=== PATIENT | female | born 1945 | race Caucasian/White ===

== ENCOUNTER 2016-12-18 20:52 | Emergency (ER) | payer OTHER ==
[2016-12-18 20:58] VITALS: BP 188/72; BMI 30.1
--- NOTE | 2016-12-18 21:28 | RAD ---
EXAM: Right foot x-ray INDICATION: Pain COMPARISION: None TECHNIQUE: AP, lateral, and oblique, three views FINDINGS: There is a transverse fracture extending through the proximal meta diaphyseal region of the 3rd meta tarsal. There is an obliquely oriented fracture extending through the base of the 1st metatarsal. No fracture is identified in the 2nd metatarsal however given the other findings, an occult injury may be present. The joint spaces are preserved. No dislocation. No foreign body. IMPRESSION: Fractures are identified at the bases of the 1st and 3rd metatarsals. The joints appear normally ali gned and the joint spaces are preserved. Reported By:
--- NOTE | 2016-12-18 21:59 | DR.GENAD ---
HPI - PCP Primary Care Physician: claudia - Complaint/Symptoms Chief Complaint Doctors Comments: I agree with history as stated. Chief Complaint:: pt states" i slide down in the hahn at home and hurt my right foot i can't put pressure on it with severe pain" - Source History Provided: Patient - Mode of Arrival Mode of Arrival: Wheelchair - Timing Onset of Chief Complaint: 12/18/16 PMH - PMH Past Medical History: Yes Past Medical History: GERD, Hypertension, Hypothyroidism Past Surgical History: Yes Surgical History: Cholecystectomy, Other - Family History History of Family Medical Conditions: Yes Family Medical History: Cancer, Hypertension - Social History Does any household member use tobacco: No Alcohol Use: None Lives With: Family Lives Where: Home - infectious screening In the last 2 months have you had wt loss of >10#?: NO Have you had fever, night sweats or hemotysis?: No Have you traveled outside the country in the last 6 months?: No Isolation: Standard ROS - Review of Systems Eyes: No Symptoms Reported ENTM: No Symptoms Reported Respiratoy: No Symptoms Reported Cardiovascular: No Symptoms Reported Gastrointestinal/Abdominal: No Symptoms Reported Genitourinary: No Symptoms Reported Neurological: No Symptoms Reported Musculoskeletal: Foot (right foot pain) Integumentary: No Symptoms Reported Hematologic/Lymphatic: No Symptoms Reported Endocrine: No Symptoms Reported Psychiatric: No Symptoms Reported All Other Systems: Reviewed and Negative PE - Vital Signs Vitals: Temperature 98 F Pulse Rate 80 Respiratory Rate 16 Blood Pressure [Left Arm] 147/71 Blood Pressure [Right Arm] 143/71 Blood Pressure 188/72 O2 Sat by Pulse Oximetry 100 - General General Appearance: Alert, In No Apparent Distress - Head Head Exam: Normal Inspection, Atraumatic - Eyes Eye exam: Normal Appearance, PERRL, EOMI - ENT ENT Exam: Normal Exam External Ear Exam: Normal External Inspection TM/Canal Exam: Bilateral Normal Nose Exam: Normal Nose Exam Mouth Exam: Normal Inspection Throat Exam: Normal Inspection - Neck Neck Exam: Normal Inspection, Full ROM - Chest Chest Inspection: Normal Inspection - Respiratory Respiratory Exam: Normal Lung Sounds Bilat Respiratory Exam: Bilateral Clear to Auscultation - Cardiovascular Cardiovascular Exam: Regular Rate - Abdominal Exam Abdominal Exam: Normal Inspection, Normal Bowel Sounds Abdominal Tenderness: negative: RUQ, RLQ, LUQ, LLQ, Epigastrium, Suprapubic, Diffuse, Mild, Moderate, Severe, Other - Extremities Extremities Exam: Other (Right foot pain ful to touch ) - Back Back Exam: Normal Inspection - Neurologic Neurological Exam: Alert, Oriented X3, CN II-XII Intact - Psychiatric Psychiatric Exam: Normal Affect, Normal Mood - Skin Skin Exam: Warm, Dry, Intact ROR - XRAY XRAY Interpreted by: Radiologist (Foot: Fracturtes are identified at the bases of the 1st and 3rd metatarsals. The joints appear normally aligned and the joint spaces are preserved.) - Diagnosis Discharge Problem: Fx metatarsal-closed Qualifiers: Encounter type: initial encounter Metatarsal bone: unspecified metatarsal Fracture alignment: displaced Laterality: right Qualified Code(s): S92.301A - Fracture of unspecified metatarsal bone(s), right foot, initial encounter for closed fracture - Discharge Plan Condition: Stable - Follow ups/Referrals Follow ups/Referrals: Kulwant Anderson [Primary Care Provider] - 3 days - Instructions
[2016-12-18] MEDS ORDERED: NORCO 5/325 MG TAB PO ONE (22:06)
[2016-12-18] MEDS ORDERED: NORCO 5/325 MG TAB ONE (22:09)
== END 2016-12-18 22:26 | disposition home or self-care (01) ==
LOC: ER 20:52
DX: S92.301A Fracture of unspecified metatarsal bone(s), right foot, initial encounter for closed fracture (principal); W19.XXXA Unspecified fall, initial encounter; Y92.009 Unspecified place in unspecified non-institutional (private) residence as the place of occurrence of the external cause
CPT/HCPCS: 73630; 99282